=== PATIENT | male | born 1960 | race Caucasian/White ===

== ENCOUNTER 2017-09-07 16:45 | Inpatient (IN) | payer MEDICARE, OTHER ==
[~2017-09-07] VITALS: Ht 182.9 cm; Wt 78.9 kg
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
[2017-09-07 18:42] VITALS: BP 150/93; PULSE 110; RESP 20; O2SAT 98
[2017-09-07 18:59] LABS: BILIRUBIN, URINE NEG (NEG); BLOOD, URINE NEG (NEG); GLUCOSE,URINE NEG (NEG); KETONE, URINE NEG (NEG); NITRITE,URINE NEG (NEG); PH, URINE 6.5 (5.0-8.5); URINE COLOR LIGHT-YELLOW (YELLW/STRAW); URINE LEUKOCYTE ESTERASE NEG (NEG)
[2017-09-07 19:29] LABS: AUTOMATED NEUTROPHIL # 6.8 TH/MM3 (1.8-7.7); BASOPHIL # 0.1 TH/MM3 (0-0.2); BASOPHIL % 0.5 % (0.0-2.0); EOSINOPHIL # 0.1 TH/MM3 (0-0.4); EOSINOPHIL % 0.7 % (0.0-4.0); HEMOGLOBIN 13.1 GM/DL (13.0-17.0); LYMPH % 24.1 % (9.0-44.0); LYMPHOCYTE # 2.6 TH/MM3 (1.0-4.8); MEAN CELL VOLUME 86.6 FL (80.0-100.0); MEAN CORPUSCULAR HGB CONC 33.5 % (32.0-36.0); MEAN PLATELET VOLUME 7.8 FL (7.0-11.0); MONO % 12.4 % (0.0-8.0); MONOCYTE # 1.4 TH/MM3 (0-0.9); NEUT % 62.3 % (16.0-70.0); PLATELET COUNT 206 TH/MM3 (150-450); RED CELL DISTRIBUTION WIDTH 14.3 % (11.6-17.2); WHITE BLOOD COUNT 10.9 TH/MM3 (4.0-11.0)
[2017-09-07] MEDS ORDERED: DIVA500T PO (19:51)
[2017-09-07] MEDS ORDERED: HALO10TA PO (19:51)
[2017-09-07] MEDS ORDERED: SIMV20TA PO (19:51)
[2017-09-07] MEDS ORDERED: OLAN15TA PO (19:51)
[2017-09-07] MEDS ORDERED: MELO15TA20 PO (19:51)
[2017-09-07] MEDS ORDERED: HYDR25TA5 PO (19:51)
[2017-09-07] MEDS ORDERED: LEVO88TA2 PO (19:51)
[2017-09-07] MEDS ORDERED: BENZ0.5T PO (19:51)
[2017-09-07] MEDS ORDERED: TRAZ100T10 PO (19:51)
[2017-09-07 20:12] LABS: ALBUMIN 4.1 GM/DL (3.4-5.0); AST (GOT) 19 U/L (15-37); BICARBONATE 27.8 MEQ/L (21.0-32.0); BLOOD UREA NITROGEN 10 MG/DL (7-18); CALCIUM 8.9 MG/DL (8.5-10.1); CHLORIDE 98 MEQ/L (98-107); GLOMERULAR FILTRATION RATE 100 ML/MIN (>89); GLUCOSE,RANDOM 103 MG/DL (74-106); SODIUM (NA) 134 MEQ/L (136-145)
[2017-09-07 20:14] LABS: ALT (GPT) 21 U/L (12-78); TOTAL BILIRUBIN ADULT 0.2 MG/DL (0.2-1.0); TOTAL PROTEIN 7.6 GM/DL (6.4-8.2)
[2017-09-07 20:15] LABS: ALKALINE PHOSPHATASE 51 U/L (45-117)
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
[2017-09-07 21:00] VITALS: BP 116/79; PULSE 98; RESP 12; O2SAT 97
[2017-09-07] MEDS ORDERED: MAGNESIUM HYDROXIDE SUSP 30 ML CUP PO PRN (21:00)
[2017-09-07] MEDS ORDERED: ALUMINUM/MAGNESIUM/SIMETH 30 ML CUP PO PRN (21:00)
[2017-09-08] MEDS ORDERED: LORazepam 2 MG/ML VIAL ONE (05:19)
[2017-09-08] MEDS ORDERED: HALOPERIDOL LACTATE 5 MG/ML AMP ONE (05:19)
[2017-09-08] MEDS ORDERED: LORazepam 2 MG/ML VIAL IM SCH (05:30)
[2017-09-08] MEDS ORDERED: HALOPERIDOL LACTATE 5 MG/ML AMP IM SCH (05:30)
[2017-09-08] MEDS ORDERED: HALOPERIDOL LACTATE 5 MG/ML AMP IM ONE (05:45)
[2017-09-08] MEDS ORDERED: LORazepam 2 MG/ML VIAL IM ONE (05:45)
[2017-09-08] MEDS: LEVOTHYROXINE SODIUM 88 MCG TAB PO SCH (06:10)
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
[2017-09-08] MEDS: PRAVASTATIN SOD 40 MG TAB PO SCH (09:00)
[2017-09-08] MEDS: MELOXICAM 15 MG TAB PO SCH (09:00)
[2017-09-08] MEDS: DIVALPROEX DR 500 MG TABEC PO SCH ×2 (09:00→21:00)
[2017-09-08] MEDS: BENZTROPINE MESYLATE 1 MG TAB PO SCH ×2 (09:00→21:00)
[2017-09-08] MEDS: NICOTINE 21 MG/24 HR PATCH T-DERMAL SCH (09:00)
[2017-09-08] MEDS: REMOVE OLD PATCH T-DERMAL SCH (09:00)
[2017-09-08] MEDS: HYDROCHLOROTHIAZIDE 25 MG TAB PO SCH (09:00)
[2017-09-08 12:01] LABS: BICARBONATE 28.5 MEQ/L (21.0-32.0); BLOOD UREA NITROGEN 11 MG/DL (7-18); CALCIUM 8.5 MG/DL (8.5-10.1); CHLORIDE 101 MEQ/L (98-107); GLOMERULAR FILTRATION RATE 139 ML/MIN (>89); GLUCOSE,RANDOM 118 MG/DL (74-106); SODIUM (NA) 135 MEQ/L (136-145)
[2017-09-08 12:02] LABS: CHOLESTEROL 130 MG/DL (120-200)
[2017-09-08 12:04] LABS: CHOLESTEROL/ HDL RATIO 2.39 RATIO; HDL CHOLESTEROL 54.2 MG/DL (40.0-60.0); LDL CHOLESTEROL 59 MG/DL (0-99); TRIGLYCERIDES 86 MG/DL (42-150)
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
[2017-09-08 18:09] LABS: HEMOGLOBIN A1C 5.7 % (4.3-6.0)
[2017-09-08] MEDS ORDERED: traZODone HCL 50 MG TAB PO PRN (21:00)
[2017-09-08] MEDS ORDERED: diphenhydrAMINE HCL 50 MG CAP PO ONE (21:15)
[2017-09-09] MEDS: LEVOTHYROXINE SODIUM 88 MCG TAB PO SCH (05:34)
[2017-09-09 05:49] VITALS: BP 121/77; PULSE 94; RESP 18; TEMP 97.9; O2SAT 100
[2017-09-09] MEDS: REMOVE OLD PATCH T-DERMAL SCH (09:00)
[2017-09-09] MEDS: MELOXICAM 15 MG TAB PO SCH ×2 (09:00→13:19)
[2017-09-09] MEDS: NICOTINE 21 MG/24 HR PATCH T-DERMAL SCH (09:00)
[2017-09-09] MEDS: HYDROCHLOROTHIAZIDE 25 MG TAB PO SCH ×2 (09:00→13:19)
[2017-09-09] MEDS: PRAVASTATIN SOD 40 MG TAB PO SCH ×2 (09:00→13:19)
[2017-09-09] MEDS: BENZTROPINE MESYLATE 1 MG TAB PO SCH ×3 (09:00→20:13)
[2017-09-09] MEDS: DIVALPROEX DR 500 MG TABEC PO SCH ×3 (09:00→20:13)
[2017-09-09] MEDS: LORazepam 1 MG TAB PO PRN ×2 (13:20→17:41)
[2017-09-09] MEDS: ACETAMINOPHEN 325 MG TAB PO PRN ×2 (14:22→20:17)
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
[2017-09-09 16:48] VITALS: BP 123/73; PULSE 105; RESP 18; TEMP 98.1; O2SAT 96
[2017-09-10 05:28] VITALS: BP 150/81; PULSE 97; RESP 18; TEMP 97.1; O2SAT 96
[2017-09-10] MEDS: LEVOTHYROXINE SODIUM 88 MCG TAB PO SCH (06:33)
[2017-09-10] MEDS: ACETAMINOPHEN 325 MG TAB PO PRN ×3 (07:53→20:01)
[2017-09-10] MEDS: DIVALPROEX DR 500 MG TABEC PO SCH ×2 (07:54→20:01)
[2017-09-10] MEDS: HYDROCHLOROTHIAZIDE 25 MG TAB PO SCH (07:54)
[2017-09-10] MEDS: MELOXICAM 15 MG TAB PO SCH (07:54)
[2017-09-10] MEDS: BENZTROPINE MESYLATE 1 MG TAB PO SCH ×2 (07:55→20:01)
[2017-09-10] MEDS: PRAVASTATIN SOD 40 MG TAB PO SCH (07:55)
[2017-09-10] MEDS: REMOVE OLD PATCH T-DERMAL SCH (09:00)
[2017-09-10] MEDS: NICOTINE 21 MG/24 HR PATCH T-DERMAL SCH (09:00)
--- NOTE | 2017-09-10 15:53 | HHI.PYPN ---
Subjective Remarks Patient seen for follow up; chart reviewed. Discussion with nursing staff reported that patient was noted to continue to display disorganized behavior at times, and last evening banged on nurses station window but was re-directible. Patient was found in the hallway, calm and cooperative with interview. Patient noted to have some thought blocking during interview, appearing internally preoccupied at times. He states that having slept well last night, mood being "good", denies any symptoms, and limited insight. Patient mentions that he had spoken to his over the phone that his son had return back to the home from a hospitalization. Patient aware of lab work and EKG today and upcoming VPA level on 09/12/17. Review of Systems Except as stated in HPI: all other systems reviewed are Neg Mental Status Examination Appearance: Appropriate Consciousness: Alert Orientation: Person, Place, Date/Time Motor Activity: Normal gait Speech: Pressured Language: Adequate Fund of Knowledge: Inadequate Attention and Concentration: Inadequate Memory: Impaired (Surrounding events prior to his admission) Mood: Anxious Affect: Blunt Thought Process & Associations: Disorganized (at times) Thought Content: Bizarre thinking Hallucination Type: Auditory (Denies the patient is noted to be internally preoccupied.) Delusion Type: Paranoid Suicidal Ideation: No Suicidal Plan: No Suicidal Intention: No Homicidal Ideation: No Homicidal Plan: No Homicidal Intention: No Insight: Poor Judgment: Poor Results Vitals/IOs Vital Signs Date Time Temp Pulse Resp B/P (MAP) Pulse Ox O2 Delivery O2 Flow Rate FiO2 09/10/17 05:28 97.1 97 18 150/81 (104) 96 09/07/17 21:00 Room Air Assessment & Plan Problem List: (1) Schizoaffective disorder, bipolar type ICD Codes: F25.0 - Schizoaffective disorder, bipolar type Assessment & Plan Patient continues to display disorganized behavior, appear internally preoccupied, continues to require further stabilization. Will continue current treatment with upward titration. Continue to monitor mood and behavior. Labs and EKG ordered. Discharge planning in progress. Justification for Cont. Inpt. At risk for further decompensation if at lower level of care Discharge Planning Return back to residence when stable. Request HC Surrog/Guard Advoc?: Yes Trae Cruz MD Sep 10, 2017 15:53
[2017-09-10 17:54] VITALS: BP 119/70; PULSE 98; RESP 16; TEMP 97.7; O2SAT 96
--- NOTE | 2017-09-10 20:17 | EKG ---
Date Performed: 09/10/2017 Time Performed: 13:53:51 PTAGE: 57 years EKG: Sinus rhythm MINIMAL VOLTAGE CRITERIA FOR LVH, CONSIDER NORMAL VARIANT BORDERLINE ECG NO PREVIOUS TRACING DOCTOR: Marin Leavitt Interpretating Date/Time 09/10/2017 20:15:44
[2017-09-11] MEDS: LEVOTHYROXINE SODIUM 88 MCG TAB PO SCH (05:51)
[2017-09-11 06:00] VITALS: BP 111/64; PULSE 79; RESP 18; TEMP 97.5; O2SAT 98
[2017-09-11] MEDS: HYDROCHLOROTHIAZIDE 25 MG TAB PO SCH (07:52)
[2017-09-11] MEDS: PRAVASTATIN SOD 40 MG TAB PO SCH (07:52)
[2017-09-11] MEDS: BENZTROPINE MESYLATE 1 MG TAB PO SCH ×2 (07:52→21:57)
[2017-09-11] MEDS: DIVALPROEX DR 500 MG TABEC PO SCH ×2 (07:53→21:00)
[2017-09-11] MEDS: ACETAMINOPHEN 325 MG TAB PO PRN ×2 (07:54→15:45)
[2017-09-11] MEDS: MELOXICAM 15 MG TAB PO SCH (09:00)
[2017-09-11] MEDS: REMOVE OLD PATCH T-DERMAL SCH (09:00)
[2017-09-11] MEDS: NICOTINE 21 MG/24 HR PATCH T-DERMAL SCH (09:00)
[2017-09-11 10:50] LABS: BICARBONATE 29.4 MEQ/L (21.0-32.0); CREATININE 0.66 MG/DL (0.60-1.30)
--- NOTE | 2017-09-11 17:11 | HHI.PYPN ---
Subjective Remarks Patient seen for follow, chart reviewed. Discussion nursing staff reported the patient continues to be argumentative at times last time being this morning, compliant with medications. Patient was found lying queta-IUs noted B, cooperative. Patient states that his mood has been "good" reported no difficulty eating but did report having some constipation reported last time was 4 days ago. Patient denies any perceptional service of delusions but it is noted to be somewhat internally preoccupied still during interview and having some episodes of argumentative behavior with staff and other peers as per nursing report. Review of Systems Except as stated in HPI: all other systems reviewed are Neg Mental Status Examination Appearance: Appropriate Consciousness: Alert Orientation: Person, Place, Date/Time Motor Activity: Normal gait Speech: Pressured Language: Adequate Fund of Knowledge: Inadequate Attention and Concentration: Inadequate Memory: Impaired (Surrounding events prior to his admission) Mood: Anxious Affect: Blunt Thought Process & Associations: Other (concrete) Thought Content: Delusional Hallucination Type: Auditory (Denies the patient is noted to be internally preoccupied.) Delusion Type: Paranoid Suicidal Ideation: No Suicidal Plan: No Suicidal Intention: No Homicidal Ideation: No Homicidal Plan: No Homicidal Intention: No Insight: Poor Judgment: Poor Results Labs labs reviewed Test 09/11/17 09:41 Blood Urea Nitrogen 12 MG/DL Creatinine 0.66 MG/DL Random Glucose 99 MG/DL Calcium Level 9.0 MG/DL Sodium Level 138 MEQ/L Potassium Level 3.9 MEQ/L Chloride Level 103 MEQ/L Carbon Dioxide Level 29.4 MEQ/L Anion Gap 6 MEQ/L Estimat Glomerular Filtration Rate 124 ML/MIN Ammonia 42 MCMOL/L Total Creatine Kinase 153 U/L Vitals/IOs Vital Signs Date Time Temp Pulse Resp B/P (MAP) Pulse Ox O2 Delivery O2 Flow Rate FiO2 09/11/17 06:00 97.5 79 18 111/64 (80) 98 09/07/17 21:00 Room Air Assessment & Plan Problem List: (1) Schizoaffective disorder, bipolar type ICD Codes: F25.0 - Schizoaffective disorder, bipolar type Assessment & Plan Patient this time continues to have some episodes of arguments with peers and staff but not agitated nor requiring ETO's. Patient continues to appear somewhat internally preoccupied but able to respond adequately with interview. We will decrease quetiapine to 20 mg p.o. at bedtime for mood stabilization and psychosis, continue rest of medications. Patient scheduled for Depakote level tomorrow morning. Continue monitor mood and behavior. Patient's family will visit this evening to assess patient's baseline. Discharge planning in progress Justification for Cont. Inpt. At risk for further decompensation if at lower level of care Request HC Surrog/Guard Advoc?: Yes Trae Cruz MD Sep 11, 2017 17:11
[2017-09-11 17:43] VITALS: BP 131/79; PULSE 104; RESP 18; TEMP 97.8; O2SAT 97
[2017-09-11] MEDS: OLANZapine 10 MG TAB PO SCH (21:00)
[2017-09-12] MEDS: LEVOTHYROXINE SODIUM 88 MCG TAB PO SCH (05:48)
[2017-09-12 06:42] VITALS: BP 122/80; PULSE 93; RESP 18; TEMP 98.2; O2SAT 97
[2017-09-12] MEDS: HYDROCHLOROTHIAZIDE 25 MG TAB PO SCH (08:40)
[2017-09-12] MEDS: BENZTROPINE MESYLATE 1 MG TAB PO SCH ×2 (08:41→21:09)
[2017-09-12] MEDS: PRAVASTATIN SOD 40 MG TAB PO SCH (08:41)
[2017-09-12] MEDS: DIVALPROEX DR 500 MG TABEC PO SCH ×2 (08:41→21:00)
[2017-09-12] MEDS: MELOXICAM 15 MG TAB PO SCH (08:41)
[2017-09-12] MEDS: REMOVE OLD PATCH T-DERMAL SCH (09:00)
[2017-09-12] MEDS: NICOTINE 21 MG/24 HR PATCH T-DERMAL SCH (09:00)
--- NOTE | 2017-09-12 16:05 | HHI.PYPN ---
Subjective Remarks Reviewed electronic medical record discussed case with staff. Staff reports patient has been very quiet and bizarre. He has been compliant. Follow-up was conducted in the hallway with nurse present. Patient reports feeling "better". He states that he slept well and has had a good appetite. He denies suicidal and homicidal ideation, visual or auditory hallucinations. His speech remains a bit pressured. Mental Status Examination Appearance: Appropriate Consciousness: Alert Orientation: Person, Place, Date/Time Motor Activity: Normal gait Speech: Pressured Language: Adequate Fund of Knowledge: Inadequate Attention and Concentration: Inadequate Memory: Impaired (Surrounding events prior to his admission) Mood: Anxious Affect: Blunt Thought Process & Associations: Other (concrete) Thought Content: Delusional Hallucination Type: Auditory (Denies the patient is noted to be internally preoccupied.) Delusion Type: Paranoid Suicidal Ideation: No Suicidal Plan: No Suicidal Intention: No Homicidal Ideation: No Homicidal Plan: No Homicidal Intention: No Insight: Poor Judgment: Poor Results Labs Test 09/12/17 08:10 Valproic Acid (Depakene) Level 43 MCG/ML Vitals/IOs Vital Signs Date Time Temp Pulse Resp B/P (MAP) Pulse Ox O2 Delivery O2 Flow Rate FiO2 09/12/17 06:42 98.2 93 18 122/80 (94) 97 Assessment & Plan Problem List: (1) Schizoaffective disorder, bipolar type ICD Codes: F25.0 - Schizoaffective disorder, bipolar type Assessment & Plan Estimated LOS: Patient seems to be making improvement. He is compliant with his medications. However, he still seems to be a bit internally stimulated and his speech is pressured. We will continue with treatment plan. Justification for Cont. Inpt. Moving this patient to a lower level of care would likely result in decompensation. Request HC Surrog/Guard Advoc?: Yes Heather Carter Sep 12, 2017 16:05
[2017-09-12 16:54] VITALS: BP 138/83; PULSE 100; RESP 18; TEMP 98.1; O2SAT 97
[2017-09-12] MEDS: OLANZapine 10 MG TAB PO SCH (21:00)
[2017-09-13] MEDS: LEVOTHYROXINE SODIUM 88 MCG TAB PO SCH (05:17)
[2017-09-13 06:23] VITALS: BP 140/82; PULSE 87; RESP 18; TEMP 97.3; O2SAT 96
[2017-09-13] MEDS: DIVALPROEX DR 500 MG TABEC PO SCH ×2 (08:32→20:03)
[2017-09-13] MEDS: MELOXICAM 15 MG TAB PO SCH (08:32)
[2017-09-13] MEDS: BENZTROPINE MESYLATE 1 MG TAB PO SCH ×2 (08:32→20:03)
[2017-09-13] MEDS: HYDROCHLOROTHIAZIDE 25 MG TAB PO SCH (08:33)
[2017-09-13] MEDS: PRAVASTATIN SOD 40 MG TAB PO SCH (08:33)
[2017-09-13] MEDS: NICOTINE 21 MG/24 HR PATCH T-DERMAL SCH (09:00)
[2017-09-13] MEDS: REMOVE OLD PATCH T-DERMAL SCH (09:00)
--- NOTE | 2017-09-13 09:22 | HHI.PYPN ---
Subjective Remarks Reviewed electronic medical record and discussed with staff. Staff reports that patient has been med compliant and did well last night. Patient reports that he slept well and ate well. He has hopes of being discharged tomorrow. Patient reported a headache. His nurse will provide as needed acetaminophen. Mental Status Examination Appearance: Appropriate Consciousness: Alert Orientation: Person, Place, Date/Time Motor Activity: Normal gait Speech: Pressured Language: Adequate Fund of Knowledge: Inadequate Attention and Concentration: Inadequate Memory: Impaired (Surrounding events prior to his admission) Mood: Anxious Affect: Blunt Thought Process & Associations: Other (concrete) Thought Content: Delusional Hallucination Type: Auditory (Denies the patient is noted to be internally preoccupied.) Delusion Type: Paranoid Suicidal Ideation: No Suicidal Plan: No Suicidal Intention: No Homicidal Ideation: No Homicidal Plan: No Homicidal Intention: No Insight: Poor Judgment: Poor Results Vitals/IOs Vital Signs Date Time Temp Pulse Resp B/P (MAP) Pulse Ox O2 Delivery O2 Flow Rate FiO2 09/13/17 06:23 97.3 87 18 140/82 (101) 96 Assessment & Plan Problem List: (1) Schizoaffective disorder, bipolar type ICD Codes: F25.0 - Schizoaffective disorder, bipolar type Assessment & Plan Estimated LOS: Patient's condition is much improved. Discharge planning is in progress. Possible discharge tomorrow. Justification for Cont. Inpt. Hopeful for discharge tomorrow. Moving this patient to a lower level of care would likely result in decompensation. Request HC Surrog/Guard Advoc?: Yes Heather Carter Sep 13, 2017 09:22
[2017-09-13] MEDS: ACETAMINOPHEN 325 MG TAB PO PRN (14:25)
[2017-09-13 17:22] VITALS: BP 148/84; PULSE 93; RESP 17; TEMP 96.5; O2SAT 97
[2017-09-13] MEDS: OLANZapine 10 MG TAB PO SCH (20:03)
[2017-09-14] MEDS: LEVOTHYROXINE SODIUM 88 MCG TAB PO SCH (06:00)
[2017-09-14] MEDS: MELOXICAM 15 MG TAB PO SCH (08:46)
[2017-09-14] MEDS: PRAVASTATIN SOD 40 MG TAB PO SCH (08:47)
[2017-09-14] MEDS: BENZTROPINE MESYLATE 1 MG TAB PO SCH (08:47)
[2017-09-14] MEDS: DIVALPROEX DR 500 MG TABEC PO SCH (08:47)
[2017-09-14] MEDS: NICOTINE 21 MG/24 HR PATCH T-DERMAL SCH (08:48)
[2017-09-14] MEDS: HYDROCHLOROTHIAZIDE 25 MG TAB PO SCH (08:48)
[2017-09-14] MEDS: REMOVE OLD PATCH T-DERMAL SCH (08:48)
[2017-09-14] MEDS ORDERED: MELO15TA20 PO (12:26)
[2017-09-14] MEDS ORDERED: PRAV40TA PO (12:26)
[2017-09-14] MEDS ORDERED: DIVA500T PO (12:26)
[2017-09-14] MEDS ORDERED: HYDR25TA5 PO (12:26)
[2017-09-14] MEDS ORDERED: OLAN20TA PO (12:26)
[2017-09-14] MEDS ORDERED: BENZ0.5T PO (12:26)
[2017-09-14] MEDS ORDERED: LEVO88TA2 PO (12:26)
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
== END 2017-09-14 14:50 | disposition home or self-care (01) | DRG 885 ==
LOC: NEPJ 16:45 → NEDA 20:54 → H260 22:11 → H270 09-08 05:50
PROVIDERS: ADMIT Student in an Organized Health Care Education/Training Program; ATTEND Student in an Organized Health Care Education/Training Program
DX: F25.0 Schizoaffective disorder, bipolar type (principal); R45.850 Homicidal ideations; R51 Headache; K59.00 Constipation, unspecified; F19.10 Other psychoactive substance abuse, uncomplicated; Z91.19 Patient's noncompliance with other medical treatment and regimen; Z91.5 Personal history of self-harm
CPT/HCPCS: 80048; 80053; 80061; 80164; 80307; 81001; 82140; 82550; 83036; 85025; 93005; J1630; J2060; Q0163